=== PATIENT | female | born 1965 | race Caucasian/White ===

== ENCOUNTER 2019-09-08 20:08 | Emergency (ER) | payer OTHER ==
[~2019-09-08] VITALS: Ht 165.1 cm; Wt 98.2 kg
[2019-09-08 20:08] VITALS: BP 126/82
[~2019-09-08 20:08] MED LIST: CIPR500T PO; PHEN-318 PO
--- NOTE | 2019-09-08 21:57 | PHYS DOC ---
Past History Past Medical History: Depression, UTI Past Surgical History: Knee Replacement Alcohol Use: None Drug Use: None General Adult EDM: Chief Complaint: PAIN ON URINATION HPI: HPI: Patient is a 53-year-old female who presents with complaint of bladder fullness and increased frequency since 4:00 this afternoon. History of frequent UTIs. No fever chills or medications taken prior to arrival. No vaginal bleeding or vaginal discharge. Review of Systems: Review of Systems: All other systems negative except as documented in HPI Heart Score: Risk Factors: Risk Factors: DM, Current or recent (<one month) smoker, HTN, HLP, family history of CAD, obesity. Risk Scores: Score 0 - 3: 2.5% MACE over next 6 weeks - Discharge Home Score 4 - 6: 20.3% MACE over next 6 weeks - Admit for Clinical Observation Score 7 - 10: 72.7% MACE over next 6 weeks - Early Invasive Strategies Allergies: Allergies: Allergies Coded Allergies Type Severity Reaction Last Updated Verified amoxicillin Allergy Unknown 01/01/15 No minocycline Allergy Unknown 01/01/15 No sulfamethoxazole Allergy Unknown 01/01/15 No trimethoprim Allergy Unknown 01/01/15 No Physical Exam: PE: Constitutional: Well developed, well nourished, no acute distress, non-toxic appearance. [] HENT: Normocephalic, atraumatic, bilateral external ears normal, oropharynx moist, no oral exudates, nose normal. [] Eyes: PERRLA, EOMI, conjunctiva normal, no discharge. [] Neck: Normal range of motion, no tenderness, supple, no stridor. [] Cardiovascular:Heart rate regular rhythm, no murmur [] Lungs & Thorax: Bilateral breath sounds clear to auscultation [] Abdomen: Bowel sounds normal, soft, suprapubic tenderness to palpation, no masses, no pulsatile masses. [] Skin: Warm, dry, no erythema, no rash. [] Back: No tenderness, no CVA tenderness. [] Extremities: No tenderness, no cyanosis, no clubbing, ROM intact, no edema. [] Neurologic: Alert and oriented X 3, normal motor function, normal sensory function, no focal deficits noted. [] Psychologic: Affect normal, judgement normal, mood normal. [] EKG: EKG: [] Radiology/Procedures: Radiology/Procedures: [] Course & Med Decision Making: Course & Med Decision Making 2236: Urinalysis shows 10-20 red blood cells without evidence of infection. Patient now tells me that she has been to her primary care physician within the last couple of weeks secondary to similar symptoms and she had a urinalysis performed which showed hematuria and also some leukocyte esterase. She was not started on antibiotics at that time but she was recommended to possibly follow- up with urology which she has not done. She states that her symptoms seem to go away until today. At this time I will not start her on antibiotics and I have recommended that she follow-up with urology; she will need to call her primary care physician's office for referral as there is not a physician in our network base in urology specialty. Jaleesa Disclaimer: Jaleesa Disclaimer: This electronic medical record was generated, in whole or in part, using a voice recognition dictation system. Departure Departure: Impression: Primary Impression: Hematuria Disposition: 01 HOME, SELF-CARE Condition: STABLE Referrals: HOLGER WALTERS DO (PCP) Please call tomorrow for urology referral. Patient Instructions: Hematuria, Adult YOLA HWANG DO Sep 08, 2019 21:57
[2019-09-08 22:27] LABS: BILIRUBIN,URINE NEG (NEG); CLARITY,URINE CLEAR; COLOR,URINE YELLOW; GLUCOSE,URINE 500 mg/dL (NEG); NITRITE,URINE NEG (NEG); UROBILINOGEN,URINE 0.2 mg/dL (0.2 mg/dL)
[2019-09-08 22:28] LABS: BACTERIA,URINE 0 /HPF (0-FEW); SQUAMOUS EPITHELIAL CELL,UR OCC /LPF; WBC,URINE OCC /HPF (0-4)
== END 2019-09-08 23:15 | disposition home or self-care (01) ==
LOC: ER 20:08
DX: R31.9 Hematuria, unspecified (principal); Z87.440 Personal history of urinary (tract) infections; Z88.1 Allergy status to other antibiotic agents; Z88.2 Allergy status to sulfonamides
CPT/HCPCS: 81001; 99283

== ENCOUNTER 2020-05-12 01:40 | Emergency (ER) | payer OTHER ==
[~2020-05-12] VITALS: Ht 165.1 cm; Wt 96.9 kg
--- NOTE | 2020-05-12 01:51 | PHYS DOC ---
Past History Past Medical History: Diabetes, Hypertension, UTI Past Surgical History: Knee Replacement Alcohol Use: None Drug Use: None General Adult HPI: HPI: ".. I ve been sick ever since eating deli at noon.. I took some tums.. it did n ot help... It hurts so bad up here in the pit of my stomach.. and upper right.. I could not sleep...".." I hurt so bad...." Patient is a 54 year old female who presents with above hx and complaints epigastric and right upper quadrant pain. Patient has been ill since noon today. Patient localizes pain that she describes as like previous episodes of food poisoning but more severe. Patient denies any recent travel or severe ill contacts. Normally healthy. No history of dark stools. Patient only follows at [facility]. There is a family history of gallbladder disease with her mother at age 50. Pt.does have hx of DM. Review of Systems: Review of Systems: Constitutional: Denies fever or chills Eyes: Denies change in visual acuity HENT: Denies nasal congestion or sore throat Respiratory: Denies cough or shortness of breath Cardiovascular: Complaints of mid lower chest pain GI: Complains of severe right upper and epigastric abdominal pain, nausea, vomiting. Denies, bloody stools or diarrhea : Denies dysuria Musculoskeletal: Denies back pain or joint pain Integument: Denies rash Neurologic: Denies headache, focal weakness or sensory changes Endocrine: Denies polyuria or polydipsia Lymphatic: Denies swollen glands Psychiatric: Denies depression or anxiety Family History: Family History: Gallbladder disease age 50's Current Medications: Current Meds: See nursing for home meds Allergies: Allergies: Allergies Coded Allergies Type Severity Reaction Last Updated Verified amoxicillin Allergy Unknown 01/01/15 No minocycline Allergy Unknown 01/01/15 No sulfamethoxazole Allergy Unknown 01/01/15 No trimethoprim Allergy Unknown 01/01/15 No Physical Exam: PE: Constitutional: in acute distress, non-toxic appearance. [] HENT: Normocephalic, atraumatic, bilateral external ears normal, oropharynx moist, no oral exudates, nose normal. Red hair Eyes: PERRLA, EOMI, conjunctiva normal, no discharge. [] Neck: Normal range of motion, no tenderness, supple, no stridor. [] Cardiovascular:Heart rate regular rhythm, no murmur [] Lungs & Thorax: Bilateral breath sounds equal at apex auscultation [] Abdomen: Bowel sounds normal, soft, right upper quadrant epigastric tenderness, no masses, no pulsatile masses. Rebound to right upper quadrant and epigastric Skin: Warm, diaphoretic, no erythema, no rash. [] Back: No tenderness, no CVA tenderness. [] Extremities: No tenderness, no cyanosis, no clubbing, ROM intact, no edema. No psoas sign. No cording. Neurologic: Alert and oriented X 3, normal motor function, normal sensory function, no focal deficits noted. [] Psychologic: Affect anxious, judgement normal, mood normal. [] EKG: EKG: My interpretation EKG shows a sinus rhythm at 78 bpm. There is low voltage. No findings of acute STEMI of contralateral changes. [] Radiology/Procedures: Radiology/Procedures: My interpretation of acute abdomen shows non obstructive obstructive bowel gas pattern. There is moderate amount of constipation. Does have findings of gallstones. [] CT shows cholelithiasis with wall thickening and pericholecystic stick fluid collection. There is jejunal wall thickening. There is severe hepatic steatosis. Heart Score: HEART Score for Chest Pain: HEART Score for Chest Pain Response (Comments) Value History Slighlty/Non-Suspicious 0 ECG Normal 0 Age >45 - < 65 1 Risk Factors 1 or 2 Risk Factors 1 Troponin < Normal Limit 0 Total 2 Risk Factors: Risk Factors: DM, Current or recent (<one month) smoker, HTN, HLP, family history of CAD, obesity. Risk Scores: Score 0 - 3: 2.5% MACE over next 6 weeks - Discharge Home Score 4 - 6: 20.3% MACE over next 6 weeks - Admit for Clinical Observation Score 7 - 10: 72.7% MACE over next 6 weeks - Early Invasive Strategies Course & Med Decision Making: Course & Med Decision Making Pertinent Labs and Imaging studies reviewed. (See chart for details) Discussed options of treatment with patient patient. The patient request that she have a surgical consult for her gallstones. Patient transferred to [facility] admitted to Dr. Bolaños with Surgery consult to Dr. Witt. Impression: 1. Abdomen pain 2. Diabetes-217 3. Gallstones-biliary colic 4. Constipation [] Dragon Disclaimer: Dragon Disclaimer: This electronic medical record was generated, in whole or in part, using a voice recognition dictation system. Departure Departure: Referrals: HOLGER WALTERS DO (PCP) Jaleesa Disclaimer This chart was dictated in whole or in part using Voice Recognition software in a busy, high-work load, and often noisy Emergency Department environment. It may contain unintended and wholly unrecognized errors or omissions. Dragon Disclaimer This chart was dictated in whole or in part using Voice Recognition software in a busy, high-work load, and often noisy Emergency Department environment. It may contain unintended and wholly unrecognized errors or omissions. Dragon Disclaimer This chart was dictated in whole or in part using Voice Recognition software in a busy, high-work load, and often noisy Emergency Department environment. It may contain unintended and wholly unrecognized errors or omissions. MIGNON FUCHS MD May 12, 2020 01:51
[2020-05-12] MEDS ORDERED: ONDANSETRON PF 4 MG/2 ML VIAL. ONE (02:26)
[2020-05-12] MEDS ORDERED: IOHEXOL 240 MG/ML 50ML VIAL. ONE (02:40)
[2020-05-12] MEDS: FAMOTIDINE 20 MG/2 ML VIAL IVP ONE (02:55)
[2020-05-12] MEDS: ONDANSETRON PF 4 MG/2 ML VIAL. IVP ONE (02:55)
[2020-05-12] MEDS: IV RINGERS SOLUTION,LACTATED 1,000 ML IV SCH (02:55)
[2020-05-12] MEDS: MAGNESIUM HYDROXIDE 2,400 MG/30 ML ORAL.SUSP. PO ONE (02:55)
[2020-05-12] MEDS: MORPHINE SULFATE 10 MG/ML SYRINGE. SQ ONE (02:56)
[2020-05-12] MEDS ORDERED: CONTRAST GIVEN. MC PRN (03:00)
[2020-05-12 03:16] LABS: BASO # 0.1 x10^3/uL (0.0-0.2); BASO % 1 % (0-3); EOS # 0.1 x10^3/uL (0.0-0.7); EOS % 1 % (0-3); HEMATOCRIT 43.6 % (36.0-47.0); HEMOGLOBIN 14.5 g/dL (12.0-15.5); LYMPH % 26 % (24-48); MEAN CORPUSCULAR HEMOGLOBIN 31 pg (25-35); MEAN CORPUSCULAR HGB CONC 33 g/dL (31-37); MEAN CORPUSCULAR VOLUME 92 fL (79-100); MONO # 0.8 x10^3/uL (0.0-1.1); MONO % 7 % (0-9); NEUT # 7.5 x10^3uL (1.8-7.7); NEUT % 65 % (31-73); PLATELET COUNT 337 x10^3/uL (140-400); RED BLOOD COUNT 4.72 x10^6/uL (3.50-5.40); RED CELL DISTRIBUTION WIDTH 12.7 % (11.5-14.5); WHITE BLOOD COUNT 11.5 x10^3/uL (4.0-11.0)
[2020-05-12 03:36] LABS: CALCIUM 9.5 mg/dL (8.5-10.1); GFR 58.2; POTASSIUM 3.8 mmol/L (3.5-5.1)
[2020-05-12 03:42] LABS: ALBUMIN 3.9 g/dL (3.4-5.0); DIRECT BILIRUBIN 0.1 mg/dL (0.0-0.2); TOTAL BILIRUBIN 0.3 mg/dL (0.2-1.0); TOTAL PROTEIN 7.6 g/dL (6.4-8.2)
[2020-05-12] MEDS: IOHEXOL 300 MG/ML 75 ML VIAL. IV ONE (05:03)
[2020-05-12 05:38] LABS: BACTERIA,URINE 0 /HPF (0-FEW); BARBITURATES NEG (NEG); BENZODIAZEPINES NEG (NEG); BILIRUBIN,URINE NEG (NEG); CANNABINOIDS NEG (NEG); CLARITY,URINE CLEAR; COCAINE NEG (NEG); COLOR,URINE YELLOW; GLUCOSE,URINE 250 mg/dL (NEG); METHADONE NEG (NEG); NITRITE,URINE NEG (NEG); OPIATES POS (NEG); PHENCYCLIDINE NEG (NEG); RBC,URINE 0 /HPF (0-2); SQUAMOUS EPITHELIAL CELL,UR OCC /LPF; UROBILINOGEN,URINE 0.2 mg/dL (0.2 mg/dL); WBC,URINE OCC /HPF (0-4)
[2020-05-12 05:39] LABS: AMPHETAMINE/METHAMPHETAMINE NEG (NEG)
[2020-05-12 07:09] VITALS: BP 111/70
--- NOTE | 2020-05-12 13:33 | EKG ---
[address] [address] Test Date: 2020-05-12 Test Time: 03:15:53 Pat Name: MYRA DOWNING Department: Room: Gender: F Smt Operator: RIRI : 1965 Requested By: MIGNON FUCHS Order Number: [id number] Reading MD: Measurements Intervals [place] Rate: 78 P: 26 WI: 190 QRS: 41 QRSD: 94 T: 51 QT: 370 QTc: 425 Interpretive Statements SINUS RHYTHM LOW LIMB LEAD VOLTAGE NO SPECIFIC ECG ABNORMALITIES RI6.02 No previous ECG available for comparison
--- NOTE | 2020-05-12 16:21 | RAD ---
XR ABDOMEN COMP ACUTE History: Reason: n/ epigastric pain / Spl. Instructions: / History: Technique: Upright and supine views of the abdomen. Comparison: None. Findings: No consolidation or pleural effusion. No pneumothorax. No pneumoperitoneum. Minimal small bowel gas. Air and stool scattered throughout the imaged colon. Moderate proximal colon ic stool burden. Calcific effusions within the left mid abdomen likely within bowel loops. Cholelithi asis. Impression: 1. Nonobstructed bowel gas pattern. 2. Moderate proximal colonic stool burden. 3. Cholelithiasis. Electronically signed by: Conor Delong DO (05/12/2020 4:14 AM) [facility]
--- NOTE | 2020-05-12 16:21 | RAD ---
CT ABDOMEN+PELVIS W History: Abdominal pain. Technique: After the administration of intravenous contrast, CT imaging was performed of the abdomen and pelvis. Multiplanar images are reviewed. Exposure: One or more of the following individualized dose reduction techniques were utilized for thi s examination: 1. Automated exposure control 2. Adjustment of the mA and/or kV according to patient size 3. Use of iterative reconstruction technique. Comparison: None Findings: Lower chest: No consolidation or pleural effusion. Abdomen and pelvis: Hepatic steatosis. Spleen, adrenal glands, and pancreas are unremarkable. Bilater al renal hypodensities, likely cysts. No hydronephrosis. Cholelithiasis with gallstone in the gallbladder neck. No biliary ductal dilatation. Slight perichole cystic fluid or gallbladder wall thickening. Mild colonic diverticulosis. Normal appendix. No evidence of bowel obstruction. Oral contrast opacifi es to the level of the mid small bowel. Proximal jejunal wall thickening. No adjacent inflammatory ch anges. No pathologic lymphadenopathy. No ascites. Unremarkable uterus and ovaries. Bones: Multilevel thoracolumbar spondylosis. Impression: 1. Cholelithiasis with mild wall thickening or pericholecystic fluid. Recommend ultrasound to furthe r evaluate. 2. Proximal jejunal wall thickening, may indicate enteritis. 3. Severe hepatic steatosis. Electronically signed by: Conor Delong DO (05/12/2020 5:33 AM) [facility]
== END 2020-05-12 07:09 | disposition short-term general hospital (02) ==
LOC: ER 01:40
DX: K80.20 Calculus of gallbladder without cholecystitis without obstruction (principal); K59.00 Constipation, unspecified; R07.89 Other chest pain; E11.9 Type 2 diabetes mellitus without complications; I10 Essential (primary) hypertension; Z87.440 Personal history of urinary (tract) infections; Z88.1 Allergy status to other antibiotic agents; Z88.2 Allergy status to sulfonamides; Z88.8 Allergy status to other drugs, medicaments and biological substances
CPT/HCPCS: 36415; 74022; 74177; 80048; 80076; 80307; 81001; 82550; 83690; 84484; 85025; 85610; 85730; 93005; 96361; 96372; 96374; 96375; 99285; J2270; J2405; J3490; J7120; Q9967

== ENCOUNTER 2020-08-12 20:36 | Emergency (ER) | payer OTHER ==
[~2020-08-12] VITALS: Ht 165.1 cm; Wt 96.9 kg
[~2020-08-12 20:36] MED LIST changes: -CIPR500T PO; +CIPR500T2 PO
[2020-08-12] MEDS ORDERED: DIPH,PERTUSS(ACELL),TET VAC/PF 0.5 ML SYRINGE. VAX IM ONE (21:00)
--- NOTE | 2020-08-12 21:38 | RAD ---
Left hand 3 views 08/12/2020. Reason for exam: Dog bite. There is a fracture of the ungual tuft of the thumb toward the medial side with mild separation. No o ther fracture or dislocation is seen. There is some osteoarthritis at the first carpometacarpal joint . There is no apparent foreign body. IMPRESSION: Fractures at the tip of the thumb. Electronically signed by: Yunior Morrison Jr., MD (08/12/2020 9:36 PM) [facility]
[2020-08-12] MEDS ORDERED: cefTRIAXone SODIUM 1 GM VIAL ONE (21:48)
[2020-08-12] MEDS ORDERED: IV NORMAL SALINE 50ML 50 ML ONE (21:48)
--- NOTE | 2020-08-12 21:49 | PHYS DOC ---
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 and he bit me...".." He my daughter dog.. he just been adopted.. but his vaccinations are up to date.. he was adopted from assisted... ".. " the cat was in the bed room.. and when I opened the door .. he saw Vega.. and he got by me.. I was trying to pull he off ..and he snapped at hand..." Patient is a 54 year old female who presents with above hx and complaints of dog bite Lt. hand. Patient has obvious crush injury and puncture wound to left thumb. Does have distal sensation and movement.. Patient is Lt. hand dominate. Pt. unsure she is up-to-date with tetanus vaccination. Dog reportedly is up-to-date with vaccinations. Reportedly the cat "Vega" survied the attack.. No history immunosuppression, but does have a history of diabetes. Has had problems with multiple antibiotics including amoxicillin, minocycline, Bactrim. No recent travel or significant ill contacts. Patient follows at [facility]. Review of Systems: Review of Systems: Constitutional: Denies fever or chills Eyes: Denies change in visual acuity HENT: Denies nasal congestion or sore throat Respiratory: Denies cough or shortness of breath Cardiovascular: Denies chest pain or edema GI: Denies abdominal pain, nausea, vomiting, bloody stools or diarrhea : Denies dysuria Musculoskeletal: Denies back pain or joint pain. Complains of dog bite left hand Integument: Denies rash Neurologic: Denies headache, focal weakness or sensory changes Endocrine: Denies polyuria or polydipsia Lymphatic: Denies swollen glands Psychiatric: Denies depression or anxiety Family History: Family History: Noncontributory to presentation Current Medications: Current Meds: Current Medications Medications (Trade) Dose Ordered Sig/[place] Start Time Stop Time Status Last Admin Dose Admin Diphtheria/ Pertussis/Tetanus Vacc (ADACEL TDap SYRINGE) 0.5 ml ONCE ONCE 08/12/20 21:00 08/12/20 21:03 DC 08/12/20 21:11 0.5 ML Allergies: Allergies: Allergies Coded Allergies Type Severity Reaction Last Updated Verified amoxicillin Allergy Unknown 01/01/15 No minocycline Allergy Unknown 01/01/15 No sulfamethoxazole Allergy Unknown 01/01/15 No trimethoprim Allergy Unknown 01/01/15 No Physical Exam: PE: Constitutional: In acute distress, non-toxic appearance. [] HENT: Normocephalic, atraumatic, bilateral external ears normal, oropharynx moist, no oral exudates, nose normal. [] Eyes: PERRLA, EOMI, conjunctiva normal, no discharge. Glasses Neck: Normal range of motion, no tenderness, supple, no stridor. [] Cardiovascular:Heart rate regular rhythm, no murmur [] Lungs & Thorax: Bilateral breath sounds "apex auscultation [] Abdomen: Bowel sounds normal, soft, no tenderness, no masses, no pulsatile masses. [] Skin: Warm, dry, no erythema, no rash. [] Back: No tenderness, no CVA tenderness. [] Extremities: No tenderness, no cyanosis, no clubbing, ROM intact, no edema. [Except findings of dog bite in left hand Neurologic: Alert and oriented X 3, normal motor function, normal sensory function, no focal deficits noted. [] Psychologic: Affect anxious, judgement normal, mood normal. [] Current Patient Data: Vital Signs: Vital Signs Date Time Temp Pulse Resp B/P (MAP) Pulse Ox O2 Delivery O2 Flow Rate FiO2 08/12/20 20:50 97.9 98 20 142/97 (112) 98 Room Air EKG: EKG: [] Radiology/Procedures: Radiology/Procedures: My interpretation of x-ray shows a distal fracture of thumb .[][address] [address] IMAGING REPORT Signed PATIENT: MYRA DOWNING ACCOUNT: [id number] : 1965 LOCATION: ER AGE: 54 SEX: F EXAM STATUS: REG ER ORD. PHYSICIAN: MIGNON FUCHS MD REASON: DOG BITE, TIP OF DIGITS 1 & 2 PROCEDURE: HAND LEFT 3V Left hand 3 views 08/12/2020. Reason for exam: Dog bite. There is a fracture of the ungual tuft of the thumb toward the medial side with mild separation. No other fracture or dislocation is seen. There is some osteoarthritis at the first carpometacarpal joint. There is no apparent foreign body. IMPRESSION: Fractures at the tip of the thumb. Electronically signed by: Jerardo Morrison Jr., MD (08/12/2020 9:36 PM) [facility] DICTATED AND SIGNED BY: JERARDO MORRISON Jr, MD DATE: 08/12/202134 CC: MIGNON FUCHS MD; EMERGENCY,DEPARTMENT; HOLGER WALTERS DO ~MTH0 0 Heart Score: C/O Chest Pain: N/A Risk Factors: Risk Factors: DM, Current or recent (<one month) smoker, HTN, HLP, family history of CAD, obesity. Risk Scores: Score 0 - 3: 2.5% MACE over next 6 weeks - Discharge Home Score 4 - 6: 20.3% MACE over next 6 weeks - Admit for Clinical Observation Score 7 - 10: 72.7% MACE over next 6 weeks - Early Invasive Strategies Course & Med Decision Making: Course & Med Decision Making Pertinent Labs and Imaging studies reviewed. (See chart for details) Patient did tolerate a gram of Rocephin IV. Patient to take clindamycin 300 mg 4 times a day. Patient to wear splint when not soaking thumb and salt water or Epson salts 4 times a day. Patient to apply Polysporin to thumb after soaking in warm salt water or Epson salts. Patient follow closely for signs of increasing infection. Dog should not be killed immediately but observe for the next 10 days for signs of infection. Patient take Tylenol and ibuprofen for pain. For marked pain may take Vicoprofen up to 4 times a day. Must follow-up. Distal neurovascular intact after thumb spica splint. Return if any concerns. Follow-up primary care. Impression; 1. Dog bite left hand 2. Crush injury/fracture distal thumb 3. History of diabetes [] Dragon Disclaimer: Dragon Disclaimer: This electronic medical record was generated, in whole or in part, using a voice recognition dictation system. Departure Departure: Referrals: HOLGER WLATERS DO (PCP) Scripts Hydrocodone/Ibuprofen (HYDROCODONE-IBUPROFEN 7.5-200 ) 1 Each Tablet 1 TAB PO PRN Q6HRS PRN for PAIN, #30 TAB 0 Refills Prov: MIGNON FUCHS MD 08/12/20 Clindamycin Hcl (CLINDAMYCIN HCL) 150 Mg Capsule 300 MG PO QID for dog for 10 Days, #80 CAP Prov: MIGNON FUCHS MD 08/12/20 Clindamycin Phosphate (CLEOCIN) 100 Mg Supp.vag 300 MG VG QID for dog bite for 10 Days, #120 SUPP Prov: MIGNON FUCHS MD 08/12/20 Dragon Disclaimer This chart was dictated in whole or in part using Voice Recognition software in a busy, high-work load, and often noisy Emergency Department environment. It may contain unintended and wholly unrecognized errors or omissions. Dragon Disclaimer This chart was dictated in whole or in part using Voice Recognition software in a busy, high-work load, and often noisy Emergency Department environment. It may contain unintended and wholly unrecognized errors or omissions. MIGNON FUCHS MD Aug 12, 2020 21:49
[2020-08-12] MEDS ORDERED: BACITRACIN ZINC TOPICAL OINT PACKET. TP ONE (22:04)
[2020-08-12] MEDS ORDERED: HYDROcodon/IBUPROFEN 7.5/200MG 1 TAB TABLET PO ONE (22:30)
[2020-08-12] MEDS ORDERED: CLIN100S VG (22:35)
[2020-08-12] MEDS ORDERED: CLIN150C15 PO (22:39)
[2020-08-12 22:40] VITALS: BP 130/90
[2020-08-12] MEDS ORDERED: HYDR-1179 PO (22:46)
[2020-08-12] MEDS ORDERED: CLINDAMYCIN HCL 150 MG CAPSULE PO ONE (23:00)
== END 2020-08-12 22:53 | disposition home or self-care (01) ==
LOC: ER 20:36
DX: S62.502A Fracture of unspecified phalanx of left thumb, initial encounter for closed fracture (principal); E11.9 Type 2 diabetes mellitus without complications; E78.00 Pure hypercholesterolemia, unspecified; I10 Essential (primary) hypertension; Z88.1 Allergy status to other antibiotic agents; Z88.2 Allergy status to sulfonamides; W54.0XXA Bitten by dog, initial encounter; Y93.89 Activity, other specified; Y92.89 Other specified places as the place of occurrence of the external cause; Y99.8 Other external cause status
CPT/HCPCS: 29125; 73130; 90471; 90715; 96374; 99284; J0696

== ENCOUNTER → 2021-04-14 | Outpatient (CLI) | payer OTHER ==
[~2021-04-14] MED LIST changes: +CLIN100S VG; +CLIN150C16 PO; +HYDR-1179 PO
--- NOTE | 2021-04-14 13:06 | RAD ---
EXAMINATION: XR CHEST 2V CLINICAL HISTORY: COUGH, WHEEZING X1 MONTH EXAM DATE/TIME: 04/14/2021 12:50 PM COMPARISON: 08/23/2013 FINDINGS: Lines, Tubes, and Devices: None. Cardiomediastinal Silhouette: Within normal limits. Lungs and Pleura: No evidence of focal airspace consolidation or pleural effusion. Pulmonary vasculat ure unremarkable. Bones and Soft Tissues: Degenerative changes in the thoracic spine. IMPRESSION: No evidence of acute cardiopulmonary abnormality or significant interval change. Electronically signed by: Amarjit Richardson DO (04/14/2021 1:04 PM) [id number]
== END ==
LOC: PMG 12:44
PROVIDERS: ATTEND Nurse Practitioner Family
DX: R05.9 Cough, unspecified (principal); M47.814 Spondylosis without myelopathy or radiculopathy, thoracic region
CPT/HCPCS: 71046